=== PATIENT | female | born 1985 | race Caucasian/White ===

== ENCOUNTER 2019-04-28 14:24 | Emergency (ER) | payer SELFPAY ==
[~2019-04-28] VITALS: Ht 167.6 cm; Wt 90.3 kg
--- OUTSIDE RECORDS SUMMARY | 2019-04-28 14:28 | XMS REPORT | Clinical Summary ---
Author Author [facility] Organization [facility] Address Unknown Phone Unavailable Care Team Providers Care Recreational Therapy Aide Name Role Phone Mumtaz Mercer MD PCP Allergies Comments Active Allergy Reactions Severity Noted Date Penicillins Hives 06/09/2018 Raspberry 11/01/2018 Medications End Date Status Medication Sig Dispensed Refills Start Date Active PNV,Ca42/iron/FA/Lmefolat Take by 0 e/dha (PNV-DHA PLUS ORAL) mouth. Active progesterone (PROMETRIUM) 1 po QHS 30 capsule 5 200 MG capsule 8 Active nitrofurantoin, Take 100 mg 0 macrocrystal-monohydrate, by mouth 2 (MACROBID) 100 MG capsule (two) times a day. 06/22/2018 nitrofurantoin, Take 1 14 capsule 0 macrocrystal-monohydrate, capsule (100 8 (MACROBID) 100 MG capsule mg total) by mouth 2 (two) times a day for 7 days. 07/14/2018 cephalexin (KEFLEX) 500 Take 1 21 capsule 0 MG capsule capsule (500 8 mg total) by mouth 3 (three) times a day for 7 days. 08/14/2018 nitrofurantoin, Take 1 14 capsule 0 macrocrystal-monohydrate, capsule (100 8 (MACROBID) 100 MG capsule mg total) by mouth 2 (two) times a day for 7 days. 08/24/2018 Discontinued cephalexin (KEFLEX) 500 TK ONE C PO 0 MG capsule TID FOR 7 8 DAYS 12/22/2018 cephalexin (KEFLEX) 250 Take 1 30 capsule 3 MG capsule capsule (250 8 mg total) by mouth nightly for 120 days. 12/04/2018 ibuprofen (ADVIL,MOTRIN) Take 1 tablet 30 tablet 1 600 MG tablet (600 mg 9 total) by mouth every 6 (six) hours as needed (Cramping, Laceration or Incision Pain) for up to 30 days. Active Problems Problem Noted Date Hematuria 08/24/2018 Recurrent UTI 08/24/2018 Encounters Care Team Description Date Type Specialty Luann iJmenez MD DELIVERY, 11/04/2018 Surgery Obstetrics and Gynecology Liam Nash MD 11/01/2018 Anesthesia Obstetrics and Gynecology Event Marciano Murray MD 11/01/2018 Hospital Obstetrics and Gynecology - Encounter 11/04/2018 Nan Torres MA 11/01/2018 Telephone Obstetrics and Gynecology Marciano Murray MD 10/29/2018 [facility] Obstetrics and Gynecology Encounter Kaylee Melara RN 10/29/2018 Telephone Obstetrics and Gynecology Marciano Murray MD GA: 37w4d 10/25/2018 Routine Obstetrics and Gynecology Marciano Murray MD GA: 36w1d 10/15/2018 Routine Obstetrics and Gynecology Marciano Murray MD 33 weeks gestation of ; care, subsequent , third trimester; Excessive growth affecting management of , antepartum, single or unspecified fetus 10/15/2018 Ancillary Obstetrics and Gynecology Procedure Nan Torres MA 09/30/2018 Telephone Obstetrics and Gynecology Marciano Murray MD GA: 33w5d 09/28/2018 Routine Obstetrics and Gynecology Marciano Murray MD GA: 33w0d 09/23/2018 Routine Obstetrics and Gynecology Marciano Murray MD 09/18/2018 Hospital Obstetrics and Gynecology Encounter Marciano Murray MD GA: 31w0d 09/09/2018 Routine Obstetrics and Gynecology Marciano Murray MD Rodriguez, Gabriel, MD Recurrent UTI (Primary Dx); Hematuria, unspecified type 08/24/2018 Office Visit Urology Marciano Murray MD GA: 28w0d 08/19/2018 Routine Obstetrics and Gynecology Irena Packer MA 08/11/2018 Telephone Obstetrics and Gynecology Marciano Murray MD Flank pain (Primary Dx) 08/10/2018 Hospital Obstetrics and Gynecology - Encounter 08/11/2018 Nan Torres MA 08/09/2018 Telephone Obstetrics and Gynecology Marciano Murray MD 08/07/2018 Orders Only Obstetrics and Gynecology Marciano Murray MD GA: 26w0d 08/05/2018 Routine Obstetrics and Gynecology Marciano Murray MD 07/12/2018 Telephone Obstetrics and Gynecology Nan Torres MA Hematuria, unspecified type (Primary Dx) 07/09/2018 Telephone Obstetrics and Gynecology Marciano Murray MD GA: 21w6d 07/07/2018 Initial Obstetrics and Gynecology Moni Prater RN 06/15/2018 Telephone Obstetrics and Gynecology Kaylee Melara RN 06/15/2018 Telephone Obstetrics and Gynecology Irena Packer MA 06/11/2018 Telephone Obstetrics and Gynecology Irena Packer MA 06/11/2018 Telephone Obstetrics and Gynecology Marciano Murray MD 17 weeks gestation of (Primary Dx); care, subsequent , second trimester 06/09/2018 Office Visit Obstetrics and Gynecology Marciano Murray MD Amenorrhea 06/09/2018 Ancillary Obstetrics and Gynecology Procedure Nan Torres MA Amenorrhea (Primary Dx) 05/31/2018 Orders Only Obstetrics and Gynecology after 04/27/2018 Social History Date Tobacco Use Types Packs/Day Years Used Never Smoker Smokeless Tobacco: Never Used Alcohol Use Drinks/Week oz/Week Comments No Sex Assigned at Date Recorded Not on file Industry Job Start Date Occupation Not on file Not on file Not on file Travel End Travel History Travel Start No recent travel history available. Last Filed Vital Signs Time Taken Vital Sign Reading 11/04/2018 8:00 AM [employer]UTTING AND SPLICING SUPERVISOR Blood Pressure 126/79 11/04/2018 8:00 AM C[employer]TING AND SPLICING SUPERVISOR Pulse 61 11/04/2018 8:00 AM CUTTING AND SPLICING SUPERVISOR Temperature 37 C (98.6 F) 11/04/2018 8:00 AM CUTTING AND SPLICING SUPERVISOR Respiratory Rate 16 11/02/2018 12:15 AM CUTTING AND SPLICING SUPERVISOR Oxygen Saturation 100% - Inhaled Oxygen - Concentration 11/01/2018 5:48 PM CUTTING AND SPLICING SUPERVISOR Weight 89.8 kg (198 lb) 11/01/2018 6:05 PM CUTTING AND SPLICING SUPERVISOR Height 167.6 cm (5' 6") 11/01/2018 5:48 PM CUTTING AND SPLICING SUPERVISOR Body Mass Index 31.96 Plan of Treatment Health Maintenance Due Date Last Done Comments INFLUENZA VACCINE 05/12/2019 Procedures Comments Procedure Name Priority Date/Time Associated Diagnosis DELIVERY, 11/04/2018 Intolerance of Labor Case Notes HC COMPLETE BLD COUNT Routine 11/02/2018 W/AUTO DIFF 12:44 AM CUTTING AND SPLICING SUPERVISOR ANESTHESIA EPIDURAL BLOCK Routine 11/01/2018 7:08 PM CUTTING AND SPLICING SUPERVISOR Procedure Note - Liam Nash MD - 11/01/2018 7:08 PM CUTTING AND SPLICING SUPERVISOR Epidural Block Date/Time: 11/01/2018 7:19 PM Performed by: Liam Nash MD Authorized by: Liam Nash MD Patient Location: OB Start Time: 11/01/2018 7:11 PM End Time: 11/01/2018 7:31 PM Reason for Block: labor epidural Anesthesio logist: Liam Nash MD Performed by: Anesthesio logist Preprocedu re: patient identified , IV checked, site and side verified, risks and benefits discussed, procedure verified, surgical consent completed, patient position confirmed, monitors and equipment checked and pre-op evaluation completed Time Out Performed: 11/01/2018 7:08 PM Patient Position: Sitting Prep: Betadine Monitoring : Blood pressure monitoring and heart rate Approach: Midline Interspace : L3-4 Needle Type: Tuohy Needle Gauge: 17 Test Dose: Negative and lidocaine 1.5% with epinephrin e 1-to-200,0 00 Number of Attempts: 1 Block Outcome: No apparent complicati ons, patient comfortabl e and patient tolerated procedure well Post-proce dure: Patient returned to supine position, left lateral displaceme nt and sterile dressing applied Time: 11/01/2018 7:11 PM Medication s Administer ed Lidocaine 1.5% w/epINEPHr ine PF (mg), 3 mL TYPE AND SCREEN STAT 11/01/2018 5:34 PM CUTTING AND SPLICING SUPERVISOR SYPHILIS TREPONEMAL IGG STAT 11/01/2018 5:34 PM CUTTING AND SPLICING SUPERVISOR HEPATITIS B SURFACE STAT 11/01/2018 ANTIGEN 5:34 PM CUTTING AND SPLICING SUPERVISOR HIV 1, 2 ANTIBODY STAT 11/01/2018 5:34 PM CUTTING AND SPLICING SUPERVISOR HC COMPLETE BLD COUNT STAT 11/01/2018 W/AUTO DIFF 5:34 PM CUTTING AND SPLICING SUPERVISOR URINALYSIS SCREEN AND STAT 11/01/2018 MICROSCOPY, WITH REFLEX 5:30 PM CUTTING AND SPLICING SUPERVISOR TO CULTURE URINALYSIS SCREEN AND STAT 10/29/2018 MICROSCOPY, WITH REFLEX 2:25 PM CUTTING AND SPLICING SUPERVISOR TO CULTURE ESTIMATED GFR Routine 10/29/2018 1:48 PM CUTTING AND SPLICING SUPERVISOR URIC ACID LEVEL Routine 10/29/2018 1:48 PM CUTTING AND SPLICING SUPERVISOR FIBRINOGEN Routine 10/29/2018 1:48 PM CUTTING AND SPLICING SUPERVISOR PARTIAL THROMBOPLASTIN Routine 10/29/2018 TIME (PTT) 1:48 PM CUTTING AND SPLICING SUPERVISOR PROTHROMBIN TIME WITH INR Routine 10/29/2018 1:48 PM CUTTING AND SPLICING SUPERVISOR COMPREHENSIVE METABOLIC Routine 10/29/2018 PANEL 1:48 PM CUTTING AND SPLICING SUPERVISOR HC COMPLETE BLD COUNT Routine 10/29/2018 W/AUTO DIFF 1:48 PM CUTTING AND SPLICING SUPERVISOR POC URINALYSIS DIPSTICK Routine 10/25/2018 care, subsequent 9:09 AM CUTTING AND SPLICING SUPERVISOR , third trimester Infection of bladder in in third trimester BETA STREP SCREEN CULTURE Routine 10/15/2018 36 weeks gestation of WITH GREENWOOD BROTH 9:20 AM CUTTING AND SPLICING SUPERVISOR care, subsequent , third trimester POC URINALYSIS DIPSTICK Routine 10/15/2018 36 weeks gestation of 9:16 AM CUTTING AND SPLICING SUPERVISOR US GREATER THAN Routine 10/15/2018 33 weeks gestation of 14 WEEKS 8:54 AM CUTTING AND SPLICING SUPERVISOR care, subsequent , third trimester Excessive growth affecting management of , antepartum, single or unspecified fetus POC URINALYSIS DIPSTICK Routine 09/28/2018 33 weeks gestation of 4:57 PM CUTTING AND SPLICING SUPERVISOR FIBRONECTIN Routine 09/18/2018 11:00 PM CUTTING AND SPLICING SUPERVISOR URINALYSIS SCREEN AND Routine 09/18/2018 MICROSCOPY, WITH REFLEX 10:30 PM CUTTING AND SPLICING SUPERVISOR TO CULTURE AMNISURE Routine 09/18/2018 10:20 PM CUTTING AND SPLICING SUPERVISOR POC URINALYSIS DIPSTICK Routine 09/09/2018 31 weeks gestation of 4:00 PM CUTTING AND SPLICING SUPERVISOR MICROSCOPIC EXAMINATION Routine 08/26/2018 1:01 PM CUTTING AND SPLICING SUPERVISOR URINALYSIS, COMPLETE, Routine 08/26/2018 Hematuria, unspecified WITH REFLEX TO CULTURE 1:01 PM CUTTING AND SPLICING SUPERVISOR type Recurrent UTI POC URINALYSIS DIPSTICK Routine 08/19/2018 28 weeks gestation of 11:26 AM CUTTING AND SPLICING SUPERVISOR US RENAL STAT 08/10/2018 11:23 PM CDT URINALYSIS SCREEN AND STAT 08/10/2018 MICROSCOPY, WITH REFLEX 9:35 PM CDT TO CULTURE URINALYSIS, AUTOMATED Routine 08/05/2018 26 weeks gestation of WITH MICROSCOPY 9:13 AM CDT care, subsequent , third trimester Hematuria, microscopic URINE CULTURE Routine 08/05/2018 26 weeks gestation of 9:13 AM CDT care, subsequent , third trimester Hematuria, microscopic CBC WITH PLATELET AND Routine 08/05/2018 21 weeks gestation of DIFFERENTIAL 8:24 AM CDT Supervision of high risk in second trimester High risk due to history of labor in second trimester GESTATIONAL DIABETES Routine 08/05/2018 21 weeks gestation of SCREEN 8:24 AM CDT Supervision of high risk in second trimester High risk due to history of labor in second trimester URINALYSIS, AUTOMATED Routine 07/07/2018 21 weeks gestation of WITH MICROSCOPY 9:30 AM CDT Supervision of high risk in second trimester High risk due to history of labor in second trimester Acute cystitis with hematuria URINE CULTURE Routine 07/07/2018 21 weeks gestation of 9:30 AM CDT Supervision of high risk in second trimester High risk due to history of labor in second trimester Acute cystitis with hematuria POC URINALYSIS DIPSTICK Routine 07/07/2018 21 weeks gestation of 9:13 AM CDT HIV 1/2 ANTIGEN/ANTIBODY, Routine 06/09/2018 FOURTH GENERATION W/RFL 10:11 AM CDT (REFLEX QUEST) RUBELLA IMMUNE STATUS Routine 06/09/2018 10:11 AM CDT HEPATITIS B SURFACE Routine 06/09/2018 ANTIGEN 10:11 AM CDT RPR TITER WITH REFLEX TO Routine 06/09/2018 CONFIRMATION 10:11 AM CDT ABO/RH Routine 06/09/2018 10:11 AM CDT ANTIBODY SCREEN Routine 06/09/2018 10:11 AM CDT CBC WITH PLATELET AND Routine 06/09/2018 DIFFERENTIAL 10:11 AM CDT MATERNAL SERUM QUAD Routine 06/09/2018 17 weeks gestation of SCREEN QUEST 10:11 AM CDT care, subsequent , second trimester URINALYSIS, AUTOMATED Routine 06/09/2018 17 weeks gestation of WITH MICROSCOPY 10:11 AM CDT care, subsequent , second trimester TSH REFLEX TO T4F Routine 06/09/2018 17 weeks gestation of 10:11 AM CDT care, subsequent , second trimester HEPATITIS C ANTIBODY Routine 06/09/2018 17 weeks gestation of 10:11 AM CDT care, subsequent , second trimester URINE CULTURE Routine 06/09/2018 17 weeks gestation of 10:11 AM CDT care, subsequent , second trimester CHLAMYDIA/N. GONORRHOEAE Routine 06/09/2018 RNA, TMA 10:00 AM CDT HPV MRNA E6/E7 REFLEX Routine 06/09/2018 HPV 16, 18/45 (REFLEX) 10:00 AM CDT THINPREP TIS PAP Routine 06/09/2018 10:00 AM CDT PAP W/AGE BASED SCREENING Routine 06/09/2018 17 weeks gestation of [address]/NG 10:00 AM CDT care, subsequent , second trimester US GREATER THAN Routine 06/09/2018 Amenorrhea 14 WEEKS 8:59 AM CDT after 04/27/2018 Results * CBC with platelet and differential (11/02/2018 12:44 AM CUTTING AND SPLICING SUPERVISOR) Only the most recent of 5 results within the time period is included. WBC 14.46 (H) 4.50 - 11.00 k/uL [facility] RBC 3.36 (L) 4.20 - 5.50 m/uL [facility] HGB 8.9 (L) 12.0 - 16.0 g/dL [facility] HCT 28.5 (L) 37.0 - 47.0 % [facility] MCV 84.8 82.0 - 100.0 fL [facility] MCH 26.5 (L) 27.0 - 34.0 pg [facility] MCHC 31.2 31.0 - 37.0 g/dL [facility] RDW - SD 48.3 37.0 - 55.0 fL [facility] MPV 11.1 8.8 - 13.2 fL [facility] Platelet count 239 150 - 400 k/uL [facility] Nucleated RBC 0.00 /100 WBC [facility] Neutrophils 79.3 (H) 39.0 - 69.0 % [facility] Lymphocytes 11.4 (L) 25.0 - 45.0 % [facility] Monocytes 8.0 0.0 - 10.0 % [facility] Eosinophils 0.6 0.0 - 5.0 % [facility] Basophils 0.3 0.0 - 1.0 % [facility] Specimen Blood Performing Organization Address City/[facility]/Zipcode Phone Number [facility] DEPARTMENT [address] [place] [address] PATHOLOGY AND [facility] [address] * Syphilis treponemal IgG (11/01/2018 5:34 PM CUTTING AND SPLICING SUPERVISOR) [facility] Syphilis Non-reactiveComment: Non-reactive PRINTER treponemal IgG Non-reactive: No serological BUDDHIST evidence of Syphilis infection HOSPITAL Specimen Serum Performing Organization Address [place]/[facility] Phone Number [facility] DEPARTMENT OF [address] [place] [address] PATHOLOGY [address] * HIV 1, 2 antibody (11/01/2018 5:34 PM CUTTING AND SPLICING SUPERVISOR) [facility] HIV 1, 2 Nonreactive Non-reactive PRINTER antibody Comment: [facility] Starting from January 08 2016, [facility] 4th generation HIV screening and confirmation assays are in use at [facility], consistent with the CDC-recommended algorithm. The screening test detects antibodies to HIV-1, HIV-2 and the p24 antigen. Positive screening results will be automatically reflexed to a HIV-1/HIV-2 differentiation assay. Indeterminant HIV-1 results will be further automatically reflexed to a nucleic acid test for detection of acute infection. Western blot will no longer be performed as a confirmation test. For a quick reference guide on the testing algorithm, please refer to: http://stacks.cdc.gov/view/cdc /51508. Specimen Blood Performing Organization Address [place]/[facility] Phone Number [facility] DEPARTMENT [address] [place] [address] PATHOLOGY AND GENOMIC MEDICINE [address] * Hepatitis B surface antigen (11/01/2018 5:34 PM CUTTING AND SPLICING SUPERVISOR) Only the most recent of 2 results within the time period is included. [facility] Hepatitis B Nonreactive Non-reactive PRINTER surface Ag [facility] Specimen Blood Performing Organization Address City/[facility]/Zipcode Phone Number [facility] DEPARTMENT [address] [place] [address] PATHOLOGY AND GENOMIC MEDICINE [address] * Type and screen (11/01/2018 5:34 PM CUTTING AND SPLICING SUPERVISOR) ABO grouping O [facility] Rh type POS [facility] Antibody screen NEG [facility] Specimen Blood Performing Organization Address [place]/[facility] Phone Number [address] [place] [address] PATHOLOGY AND GENOMIC MEDICINE [address] * Urinalysis screen and microscopy, with reflex to culture (11/01/2018 5:30 PM CUTTING AND SPLICING SUPERVISOR) Only the most recent of 4 results within the time period is included. Specimen site Clean catch [facility] Color, UA Yellow [facility] Appearance, UA Slightly-Cloudy [facility] Specific 1.020 1.001 - 1.035 PRINTER gravity, UA [facility] pH, UA 6.0 5.0 - 8.5 [facility] Protein, UA 1+ (A) Negative [facility] Glucose, UA Negative Negative [facility] Ketones, UA 1+ (A) Negative [facility] Bilirubin, UA Negative Negative [facility] Blood, UA Negative Negative [facility] Nitrite, UA Negative Negative [facility] Urobilinogen, 2.0 (A) <2.0 [facility] Leukocyte Negative Negative PRINTER esterase, UA [facility] Epithelial Many /HPF PRINTER cells, UA [facility] WBC, UA 0-5 0 - 4 /HPF [facility] RBC, UA 0-5 0 - 5 /HPF [facility] Bacteria, UA Trace None seen [facility] Yeast, UA None seen [facility] Yeast with None seen [facility] Specimen Urine Performing Organization Address [place]/[facility] Phone Number [address] * Estimated GFR (10/29/2018 1:48 PM CUTTING AND SPLICING SUPERVISOR) [facility] Estimated GFR >=90 mL/min/1.73 m2 PRINTER Comment: BUDDHIST [facility] rpretation G1 >=90 Normal or high G2 60-89Mildly decreased [id number] Mildly to moderately decreased [id number] Moderately to severely decreased G4 15-29Severely decreased G5 <15Kidney failure The eGFR was calculated using the Chronic Kidney Disease Epidemiology Collaboration (CKD-EPI) equation. Interpretation is based on recommendations of the National Kidney Foundation-Kidney Disease Outcomes Quality Initiative (NKF-KDOQI) published in 2014. Specimen Plasma specimen Performing Organization Address [place]/[facility] Phone Number [address] AND [address] * Partial thromboplastin time, activated (10/29/2018 1:48 PM CUTTING AND SPLICING SUPERVISOR) [facility] PTT 30.4 23.0 - 36.0 sec PRINTER Comment: JUANIS SAGE PTT therapeutic range for [facility] unfractionated heparin is 61.0-112.0 seconds which corresponds to Anti-Xa 0.3-0.7 U/ml. Specimen Blood Performing Organization Address [facility] Phone Number [address] * Prothrombin time with INR (10/29/2018 1:48 PM CUTTING AND SPLICING SUPERVISOR) [facility] Prothrombin 13.4 11.5 - 14.5 sec [facility] INR 1.0 PRINTER Comment: JUANIS VALDES The International Normalized [facility] Ratio (INR) is a therapeutic monitoring tool for patients who are stable on oral anticoagulant therapy. An INR of 2.0-3.0 is suggested for deep vein thrombosis/pulmonary embolism. Specimen Blood Performing Organization Address [place]/[facility] Phone Number [facility] DEPARTMENT [address] [place] [address] PATHOLOGY AND GENOMIC MEDICINE [address] * Fibrinogen (10/29/2018 1:48 PM CUTTING AND SPLICING SUPERVISOR) Pathologist [facility] Fibrinogen 560 (H) 200 - 450 mg/dL [facility] Specimen Blood Performing Organization Address [place]/[facility] Phone Number [address] [place] [address] PATHOLOGY AND GENOMIC MEDICINE [address] * Uric acid level (10/29/2018 1:48 PM CUTTING AND SPLICING SUPERVISOR) Pathologist [facility] Uric acid 4.1 2.4 - 5.7 mg/dL [facility] Specimen Plasma specimen Performing Organization Address [place]/[facility] Phone Number [address] [place] [address] PATHOLOGY AND GENOMIC MEDICINE [address] * Comprehensive metabolic panel (10/29/2018 1:48 PM CUTTING AND SPLICING SUPERVISOR) Pathologist [facility] Sodium 137 135 - 148 mEq/L [facility] Potassium 4.2 3.5 - 5.0 mEq/L [facility] Chloride 104 98 - 112 mEq/L [facility] CO2 18 (L) 24 - 31 mEq/L [facility] Anion gap 15@ANIO 7 - 15 mEq/L [facility] BUN 7 6 - 20 mg/dL [facility] Creatinine 0.60 0.50 - 0.90 mg/dL [facility] Glucose 100 (H) 65 - 99 mg/dL [facility] Calcium 9.5 8.3 - 10.2 mg/dL [facility] Protein 6.7 6.3 - 8.3 g/dL PRINTER Comment: [facility] 4.6-7.0 g/dL 1 week 4.4-7.6 g/dL 7 months-1year 5.1-7.3 g/dL 1-2 years5.6-7 .5 g/dL >3 years6.0-8 .0 g/dL 18-150 6.3-8.3 g/dL Albumin 3.5 3.5 - 5.0 g/dL [facility] A/G ratio 1.1 0.7 - 3.8 [facility] Alkaline 188 (H) 35 - 104 U/L PRINTER phosphatase [facility] AST 18 10 - 35 U/L [facility] ALT 28 5 - 50 U/L [facility] Total bilirubin 0.4 0.0 - 1.2 mg/dL [facility] Specimen Plasma specimen Performing Organization Address City/State/Zipcode Phone Number [facility] [place] [id number] [place] [address] [place] [address] PATHOLOGY AND GENOMIC MEDICINE [facility] [id number] [place] [address] [place], [place] [id number] [place] [address] * POC urinalysis dipstick (10/25/2018 9:09 AM CUTTING AND SPLICING SUPERVISOR) Only the most recent of 6 results within the time period is included. Color urine, Yellow POC Clarity urine, Hazy POC Glucose urine, Negative Negative POC Bilirubin Negative Negative urine, POC Ketones urine, Negative Negative POC Specific </=1.005 1.005 - 1.030 gravity urine, POC Blood urine, Negative Negative POC pH urine, POC 5.0 5.0, 5.5, 6.0, 6.5, 7.0, 7.5, 8.0, 8.5 Protein urine, Negative Negative POC Urobilinogen <2.0 <2.0 urine, POC Nitrite urine, Negative Negative POC Leukocyte Negative Negative esterase urine, POC Specimen Urine * Beta strep screen culture with greenwood broth (10/15/2018 9:20 AM CUTTING AND SPLICING SUPERVISOR) Pathologist [facility] B SEE NOTE [employer] streptococcus Comment: DIAGNOSTICS STREPTOCOCCUS, GROUP B AGUILAR CULTURE MICRO NUMBER:[id number] TEST STATUS: FINAL SPECIMEN SOURCE: NOT GIVEN SPECIMEN QUALITY:ADEQUATE RESULT: No group B Streptococcus isolated Note per CDC guidelines optimal recovery is achieved by swabbing both the lower vagina and rectum (through the anal sphincter). Specimen Vaginal - Vaginal/rectal Resulting Agency Comment Performing Organization Information: Site ID: [id number] Address: [address] [place] [address] [place] [address] Director: Ila Miranda Performing Organization Address City/[facility]/Zipcode Phone Number [employer] PRINTER [address] [place] [address] * [place] Greater Than 14 Weeks (10/15/2018 8:54 AM CUTTING AND SPLICING SUPERVISOR) Only the most recent of 2 results within the time period is included. Specimen Narrative Performed At [facility] ULTRASOUND PRESENTATION: CEPHALIC PLACENTA: ANTERIOR WEIGHT: [id number]% HEART TONES: 129BPM WENDY: 17.91CM LS Performing Organization Address City/[facility]/Zipcode Phone Number [facility] [address] [place] [address] * fibronectin (09/18/2018 11:00 PM CUTTING AND SPLICING SUPERVISOR) [facility] NegativeComment: called to PRINTER fibronectin tanika @ [address] [facility] Specimen Fluid Performing Organization Address [place]/[facility] Phone Number [facility] DEPARTMENT [address] [place] [address] PATHOLOGY AND GENOMIC MEDICINE [address] * Amnisure (09/18/2018 10:20 PM CUTTING AND SPLICING SUPERVISOR) [facility] Amnisure, POC NEGATIVEComment: results Negative PRINTER called to kai/snfnl @ [address] [facility] Specimen Amniotic fluid Performing Organization Address [facility] Phone Number [facility] DEPARTMENT [address] [place] [address] PATHOLOGY AND GENOMIC MEDICINE [address] * URINALYSIS, COMPLETE, WITH REFLEX TO CULTURE (08/26/2018 1:01 PM CUTTING AND SPLICING SUPERVISOR) Pathologist [facility] Specific 1.022 1.005 - 1.030 [facility] gravity, urine pH, urine 6.5 5.0 - 7.5 [facility] Color, UA Yellow Yellow [facility] Appearance Cloudy (A) Clear [facility] WBC esterase, Negative Negative [facility] urine Protein, UA Trace Negative/Trace [facility] Glucose, urine Negative Negative [facility] Ketones, UA Negative Negative [facility] Occult blood, Negative Negative [facility] urine Bilirubin, UA Negative Negative [facility] Urobilinogen, 0.2 0.2 - 1.0 mg/dL [facility] UA Nitrite, UA Negative Negative [facility] Microscopic CommentComment: Microscopic [facility] examination follows if indicated. Microscopic See below:Comment: Microscopic [facility] examination was indicated and was performed. Urinalysis CommentComment: This specimen [facility] reflex will not reflex to a Urine Culture. Specimen Narrative Performed At [facility]formed at: [facility] [address] [place], [place] [id number] Car Dropper: Koko Alex MD, Phone:[phone] Performing Organization Address [place]/[facility] Phone Number [facility] * Microscopic Examination (08/26/2018 1:01 PM CUTTING AND SPLICING SUPERVISOR) WBC, UA 0-5 0 - 5 /hpf [facility] RBC, UA 3-10 (A) 0 - 2 /hpf [facility] Epithelial >10 (A) 0 - 10 /hpf [facility] cells (non renal) Crystals, urine Present (A) N/A [facility] Crystal type Amorphous SedimentComment: N/A [facility] Calcium Oxalate Mucus, UA Present Not Estab. [facility] Bacteria, UA Few None seen/Few [facility] Specimen Narrative Performed At Performed at: [facility] [address] [place], [place] [id number] Car Dropper: Koko Alex MD, Phone:[phone] Performing Organization Address [place]/[facility] Phone Number [facility] * US Renal (08/10/2018 11:23 PM CDT) Specimen Narrative Performed At EXAMINATION:US RENAL [facility] CLINICAL HISTORY:Flank painstone disease suspected COMPARISON:None. FINDINGS: The kidneys are normal in size and echogenicity. There is no evidence of renal mass, calculi, or hydronephrosis. The right kidney measures 11.9 x 6.6 x 5.2 cm; cortex measures 2.0 cm. The left kidney measures 13.1 x 5.8 x 4.8 cm; cortex measures 1.7 cm. The urinary bladder is unremarkable. IMPRESSION: Unremarkable renal ultrasound examination. [facility]-[id number] Procedure Note Interface, Radiology Results Incoming - 08/10/2018 11:47 PM CDT EXAMINATION: US RENAL CLINICAL HISTORY: Flank pain stone disease suspected COMPARISON: None. FINDINGS: The kidneys are normal in size and echogenicity. There is no evidence of renal mass, calculi, or hydronephrosis. The right kidney measures 11.9 x 6.6 x 5.2 cm; cortex measures 2.0 cm. The left kidney measures 13.1 x 5.8 x 4.8 cm; cortex measures 1.7 cm. The urinary bladder is unremarkable. IMPRESSION: Unremarkable renal ultrasound examination. [facility]-[id number] Performing Organization Address City/State/Zipcode Phone Number [facility] [address] [place] [address] * Urinalysis, automated with microscopy (08/05/2018 9:13 AM CDT) Only the most recent of 3 results within the time period is included. Color, UA DARK YELLOW YELLOW [facility] PRINTER Appearance CLOUDY (A) CLEAR [facility] PR[facility] Specific 1.018 1.001 - 1.035 [facility] gravity, urine DIAGNOSTICS PRINTER pH, urine 6.5 5.0 - 8.0 [facility] Glucose, urine NEGATIVE NEGATIVE [facility] PR[facility] Bilirubin, UA NEGATIVE NEGATIVE [facility] Ketones, UA NEGATIVE NEGATIVE [facility] Occult blood, 1+ (A) NEGATIVE [facility] urine DIAGNOSTICS PRINTER Protein, UA NEGATIVE NEGATIVE [facility] PR[facility] Nitrite, UA NEGATIVE NEGATIVE [facility] Leukocyte 1+ (A) NEGATIVE [facility] esterase, UA DIAGNOSTICS PRINTER WBC, UA 0-5 < OR=5 /HPF [facility] PRINTER RBC, UA 0-2 < OR=2 /HPF [facility] PR[facility] Squamous 6-10 (A) < OR=5 /HPF [facility] epithelial DIAGNOSTICS cells, UA PRINTER Bacteria, UA NONE SEEN NONE SEEN /HPF [facility] PR[facility] Hyaline casts, NONE SEEN NONE SEEN /LPF [facility] UA DIAGNOSTICS PRINTER Specimen Urine Resulting Agency Comment Performing Organization Information: Site ID: [facility] Address: [address] [place] [phone] Director: Ila Miranda Performing Organization Address City/[facility]/Zipcode Phone Number [employer] PRINTER [address] [place] [address] * Urine culture (08/05/2018 9:13 AM CDT) Only the most recent of 3 results within the time period is included. Urine culture SEE NOTE (A) [facility] Comment: DIAGNOSTICS CULTURE, URINE, ROUTINE PRINTER MICRO NUMBER:[id number] TEST STATUS: FINAL SPECIMEN SOURCE: URINE SPECIMEN QUALITY:ADEQUATE RESULT: 10,000-50,000 CFU/mL of Enterococcus species Enteroco ccus sp. -------- -------- INT AIMEE AMPICILLIN S <=2 CIPROFLOXACIN S <=0.5 LEVOFLOXACIN S 1 NITROFURANTOIN S <=16 TETRACYCLINE R >=16 VANCOMYCIN S 1 S=SusceptibleI=Intermediat eR=Resistant*=Not Tested NR=Not ReportedNN=See Therapy Comments Specimen Urine Resulting Agency Comment Performing Organization Information: Site ID: A Name: [facility] Address: [address] [place] [phone] Director: Ila Miranda Performing Organization Address [place]/[facility] Phone Number [employer] [place] [address] * Gestational Diabetes Screen (08/05/2018 8:24 AM CDT) Glucose, 128 <135 mg/dL [facility] gestational DIAGNOSTICS screen PRINTER (50g)-135 cutoff Specimen Blood Resulting Agency Comment Performing Organization Information: Site ID: A Name: [facility] Address: [address] [place] [phone] Director: Ila Miranda Performing Organization Address [place]/[facility] Phone Number [employer] [place] [address] * MATERNAL SERUM QUAD SCREEN [facility] (06/09/2018 10:11 AM CDT) Interpretation Comment: [facility] Screen negative for open NTD, [facility] Down syndrome and ING II Trisomy 18. Risk for ONTD <1 IN 5000 [facility] ING II Age risk down 1 IN 481 [facility] syndrome [facility] ING II ROCHELLE down 1 IN 2102 [facility] syndrome risk [facility] ING II MSS3 trisomy 18 <1 IN 5000 [facility] risk [facility] ING II Alpha 18.2 ng/mL [facility] fetoprotein [facility] ING II Mom for AFP 0.52 [facility] ING II Estriol, free 1.41 ng/mL [facility] ING II Estriol MoM 1.30 [facility] ING II HCG, serum 24.14 IU/mL [facility] ING II Mom for hCG 1.14 [facility] ING II Inhibin A, 128 pg/mL [facility] dimeric [facility] ING II Inhibin A MoM 0.87 [facility] ING II Comment Comment: [facility] This patient's GARRISON (estimated [facility]AG[facility] date of delivery) ING II was used to calculate the gestational age. Performance of maternal serum AFP, hCG, estriol, and dimeric inhibin A provides a useful screening test for detection of open neural tube defects and some chromosomal abnormalities. It should be noted that normal results can never guarantee the of a normal baby and that 2 to 3 percent of newborns have some type of physical or mental defect, many of which are undetectable through any known diagnostic technique. Comment Comment: [facility] This is a screening test, not [facility]AGNOSTICS[facility] a diagnostic test. No ING II reagent system establishing the risk of chromosome abnormalities during has been approved by the FDA. This risk assessment report is based in part on demographic data provided by the ordering physician. It has been observed that patients who smoke cigarettes during may have a slightly increased risk of having a false positive ROCHELLE screen for Down syndrome or trisomy 18. Please notify the laboratory promptly if any data are incorrect. For assistance with recalculations, please call your local [facility]along laboratory. For assistance with interpretation of these results, please contact your local [facility]along genetic counselor or call [phone]). Interpretive Cut-offs Screen Positive For Open NTD:> or=2.50 adjusted MOM > or=1.90 adjusted MOM for Insulin-dependent diabetics > or=4.00 adjusted MOM for Twins > or=3.50 adjusted MOM for Twins insulin-dependent Diabetics > or=4.50 adjusted MOM for Triplets Screen Positive For Down Syndrome: "QUAD Risk Down Syndrome" that equals or exceeds 1 in 270 Screen Positive For Trisomy 18: "MSS3 Trisomy 18 Risk" that equals or exceeds 1 in 100 Calc'd 17.9 weeks [facility] gestational age DI[facility] ING II Maternal weight 196 lbs [facility] ING II Estimated due 11/11/2018 [facility] date [facility]ICS[facility] ING II GARRISON determined ULTRASOUND [facility] by [facility] ING II Mother's ethnic [facility] origin [facility] ING II Number of 1 [facility] fetuses [facility] ING II Insulin depend NO [facility] diabetic [facility] ING II Repeat specimen NO [facility] ING II Hx of neural NO [facility] tube defects [facility] ING II Prev NO [facility] down synd [facility] ING II Donor egg NO [facility] ING II Donor age: egg NOT GIVEN [facility] retrieval [facility] ING II Current smoker NO [facility] ING II Specimen Blood Resulting Agency Comment Performing Organization Information: Site ID: IG [facility]: [facility] Address: [address] [place] [phone] Director: Dr. Pipo Pike Performing Organization Address [place]/[facility] Phone Number [employer] [address] II * Rubella Immune Status (06/09/2018 10:11 AM CDT) Rubella IgG 3.38 index [facility] antibody Comment: [facility] Index ING II Interpretation ----- <0.90 Not consistent with Immunity 0.90-0.99 Equivocal > or=1.00Consistent with Immunity The presence of rubella IgG antibody suggests immunization or past or current infection with rubella virus. Specimen Resulting Agency Comment Performing Organization Information: Site ID: IG Name: [facility] Address: [address] [place] [phone] Director: Dr. Pipo Pike Performing Organization Address [place]/[facility] Phone Number [employer] [address] II * HIV 1/2 ANTIGEN/ANTIBODY, FOURTH GENERATION W/RFL (REFLEX [facility]) (06/09/2018 10:11 AM CDT) HIV AG/AB 4th NON-REACTIVE NON-REACTIVE [facility] gen Comment: DIAGNOSTICS HIV-1 antigen and HIV-1/HIV-2 AGUILAR antibodies were not detected. There is no laboratory evidence of HIV infection. PLEASE NOTE: This information has been disclosed to you from records whose confidentiality may be protected by state law.If your state requires such protection, then the state law prohibits you from making any further disclosure of the information without the specific written consent of the person to whom it pertains, or as otherwise permitted by law. A general authorization for the release of medical or other information is NOT sufficient for this purpose. For additional information please refer to [email or web address] Homebase/faq/TNG580 (This link is being provided for informational/ educational purposes only.) The performance of this assay has not been clinically validated in patients less than 2 years old. Specimen Resulting Agency Comment Performing Organization Information: Site ID: RGA [facility]: [facility] Address: [address] [place] [phone] Director: Ila Miranda Performing Organization Address City/[facility] Phone Number [employer] [place] [address] * TSH reflex to T4 (06/09/2018 10:11 AM CDT) TSH reflex to 2.65 mIU/L [facility] FT4 Comment: DIAGNOSTICS Reference PRINTER Range > or=20 Years0.40-4.50 Ranges First trimester0.26-2.66 Second trimester 0.55-2.73 Third trimester0.43-2.91 Specimen Blood Resulting Agency Comment Performing Organization Information: Site ID: [facility] Name: [facility] Address: [address] [place] [phone] Director: Ila Miranda Performing Organization Address [facility] Phone Number [employer] [place] [address] * RPR titer with reflex to confirmation (06/09/2018 10:11 AM CDT) RPR (dx) w/refl NON-REACTIVE NON-REACTIVE [facility] titer and DIAGNOSTICS confirmatory PRINTER testing Specimen Resulting Agency Comment Performing Organization Information: Site ID: [facility] Name: [facility] Address: [address] [place] [phone] Director: Ila Miranda Performing Organization Address [place]/[facility] Phone Number [employer] [place] [address] * Hepatitis C antibody (06/09/2018 10:11 AM CDT) Hepatitis C Ab NON-REACTIVE NON-REACTIVE [facility] PRINTER Signal/cutoff 0.01 <1.00 [facility] PRINTER Specimen Blood Resulting Agency Comment Performing Organization Information: Site ID: RGA [facility]: [facility] Address: [address] [place] [phone] Director: Ila Miranda Performing Organization Address [place]/[facility] Phone Number [employer] [address] [address] * ABO and Rh (06/09/2018 10:11 AM CDT) [facility] ABO grouping O [facility] ING II Rh type RH(D) POSITIVE [facility] ING II Specimen Resulting Agency Comment Performing Organization Information: Site ID: IG Name: [facility] Address: [address] [place] [phone] Director: Dr. Pipo Pike Performing Organization Address [facility] Phone Number [employer] [address] II * Antibody screen (06/09/2018 10:11 AM CDT) [facility] Antibody NO ANTIBODIES DETECTED [facility] screen, RBC Comment: [facility]NO[facility]ICS[facility] w/refl ID, ING II titer and Ag Reference range No antibodies detected This assay is a screening test for the detection of red blood cell antibodies. The test is not to be used for pretransfusion screening or for the medical management of an alloimmunized . Specimen Resulting Agency Comment Performing Organization Information: Site ID: IG Name: [facility] Address: [address] [place] [phone] Director: Dr. Pipo Pike Performing Organization Address [facility] Phone Number [facility] [facility] GroupJESS[place] [phone] [place] [address] II * HPV mRNA E6/E7 REFLEX HPV 16, 18/45 (06/09/2018 10:00 AM CDT) [facility] HPV mRNA e6/e7 Not Detected Not Detected [facility] Comment: DIAGNOSTICS This test was performed using PRINTER the APTIMA HPV Assay ([employer] This assay detects E6/E7 viral messenger RNA (mRNA) from 14 high-risk HPV types (16,18,31,33,35,39,45,51,52,56 ,58,59,66,68). The analytical performance characteristics of this assay have been determined by treadalong. The modifications have not been cleared or approved by the FDA. This assay has been validated pursuant to the CLIA regulations and is used for clinical purposes. Specimen Resulting Agency Comment Performing Organization Information: Site ID: RGA [facility]: [facility] Address: [address] [place] [phone] Director: Ila Miranda Performing Organization Address [place]/[facility] Phone Number [employer] [address] [address] * PAP W/AGE BASED SCREENING PLUS CT/NG (06/09/2018 10:00 AM CDT) Comment Comment: [facility] This order for age-based [facility] cervical cancer and STI ING II screening follows ACOG guidelines(PB 168, 140, LLE026). See individual assays for performing site location. Specimen Swab Resulting Agency Comment Performing Organization Information: Site ID: Name: [facility] Address: [address] [place] [phone] Director: Dr. Pipo Pike Performing Organization Address [place]/[facility] Phone Number [facility] [place] [address] II * CHLAMYDIA/N. GONORRHOEAE RNA, TMA (06/09/2018 10:00 AM CDT) Chlamydia NOT DETECTED NOT DETECTED [facility] trachomatis DIAGNOSTICS RNA, [facility] Neisseria NOT DETECTED NOT DETECTED [facility] gonorrhoeae DIAGNOSTICS RNA, [facility] (Always Comment: [facility] message) This test was performed using DIAGNOSTICS the APTIMA COMBO2 Assay PRINTER ([employer] The analytical performance characteristics of this assay, when used to test SurePath specimens have been determined by [facility]along. Specimen Resulting Agency Comment Performing Organization Information: Site ID: RGA [facility]: [facility] Address: [address] [place] [phone] Director: Ila Miranda Performing Organization Address [place]/[facility] Phone Number [employer] AGUILAR [address] [place] [address] * THINPREP TIS PAP (06/09/2018 10:00 AM CDT) Clinical None given [facility] information DIAGNOSTICS PRINTER Date of last NONE GIVEN [facility] menstrual DIAGNOSTICS period PRINTER Prev. pap: NONE GIVEN [facility] PRINTER Prev. bx: NONE GIVEN [facility] PR[facility] Source None given [facility] Statement of Comment: [facility] adequacy Satisfactory for evaluation. DIAGNOSTICS Endocervical/transformation PRINTER zone component present. Age and/or menstrual status not provided Interpretation/ Comment: Negative for [facility] result: intraepithelial lesion or DIAGNOSTICS malignancy. PRINTER Comment Comment: [facility] This case could not be DIAGNOSTICS evaluated with computer AGUILAR assisted technology. The slide was manually screened according to routine procedures. Tip of collection device in vial [employer] Comment: [facility] t YL, CT(ASCP) DIAGNOSTICS CT screening location: [place] [id number] Comment Comment: [facility] EXPLANATORY NOTE: DIAGNOSTICS The Pap is a screening test PRINTER for cervical cancer. It is not a diagnostic test and is subject to false negative and false positive results. It is most reliable when a satisfactory sample, regularly obtained, is submitted with relevant clinical findings and history, and when the Pap result is evaluated along with historic and current clinical information. Specimen Resulting Agency Comment Performing Organization Information: Site ID: RGA [facility]: [facility] Address: [address] [place] [phone] Director: Ila Miranda Performing Organization Address City/State/Zipcode Phone Number [place] [address] after 04/27/2018 Insurance Type Payer Benefit Subscriber ID Effective Phone Address Plan / Dates Group [employer] [facility] xxxxxxxxx 2018-P [facility] bojorquez [facility] Advance Directives Patient has advance care planning documents, and code status on file. For more i nformation, please contact: Polo Kuo [address] [place] [address] Date Inactivated Comments Code Status Date Activated 11/04/2018 7:29 PM Full Code 11/01/2018 5:09 PM Code Status decision reached by: Patient 11/01/2018 5:09 PM Full Code 11/01/2018 4:58 PM Code Status decision reached by: Patient 09/19/2018 3:49 AM Full Code 09/18/2018 10:26 PM Code Status decision reached by: Patient
[2019-04-28] MEDS ORDERED: TETANUS/DIPHTHERIA TOX ADULT 0.5 ML SYR IM ONE (14:30)
[2019-04-28] MEDS ORDERED: LIDOCAINE HCL 1% LOCAL INJ 20 ML VIAL INJ NR (14:30)
[2019-04-28 15:00] VITALS: BP 119/70
== END 2019-04-28 15:03 | disposition home or self-care (01) ==
LOC: ER 14:24
DX: S81.812A Laceration without foreign body, left lower leg, initial encounter (principal); W45.8XXA Other foreign body or object entering through skin, initial encounter; Y92.89 Other specified places as the place of occurrence of the external cause
CPT/HCPCS: 90471; 90714; 99283